=== PATIENT | female | born 2000 | race Caucasian/White ===

== ENCOUNTER 2021-04-27 12:22 | Emergency (ER) | payer OTHER, SELFPAY ==
[2021-04-27 12:34] VITALS: BP 124/65; PULSE 79; RESP 16; TEMP 36.9; O2SAT 100
--- NOTE | 2021-04-27 12:43 | ED.URI ---
HPI - URI/Sore Throat General Chief Complaint: Upper Respiratory Infection Stated Complaint: sore throat/fever/body aches Time Seen by Provider: 04/27/21 12:45 Source: patient and RN notes reviewed Mode of arrival: ambulatory Limitations: no limitations History of Present Illness HPI Narrative: 21-year-old female who presents to [facility] with complaints of sore throat,has felt feverish, body aches, with fullness feelings to bilateral ears since early Tuesday morning. Patient states that she has felt feverish but has not taken her temperature, has been taking Tylenol and Ibuprofen for her symptoms. Patient states that she has had history of previous strep throat infections in past usually once to twice yearly, has had COVID immunizations. 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 MD elicited complaint: fever, sore throat and other (chills and body aches) Onset (ago): day(s) (3) Related Data Allergies Allergy/AdvReac Type Severity Reaction Status Date / Time No Known Allergies Allergy Verified 04/27/21 12:37 Review of Systems Review of Systems: CONSTITUTIONAL: has felt feverish, chills, or sweats. EYES: Denies visual changes, redness, or discharge. ENT: Denies rhinorrhea, congestion,positive for sore throat, positive for fullness feelings of bilateral ears. CARDIOVASCULAR: Denies chest pain, palpitations, or edema. RESPIRATORY: Denies cough or dyspnea. GASTROINTESTINAL: Denies abdominal pain, states some nausea, no vomiting, or diarrhea. GENITOURINARY: Denies dysuria or hematuria. SKIN: Denies rash or itching. MUSCULOSKELETAL: Denies back pain, joint pain, generalized body aches stated. NEUROLOGIC: Denies headache, numbness, or weakness. PSYCHIATRIC: Denies anxiety or depression. All systems reviewed & are unremarkable except as noted in HPI and below PMFSH Past Medical History Medical History (Updated 04/27/21 @ 13:17 by Calli Sinclair NP) Strep pharyngitis Surgical History Surgical History (Updated 04/27/21 @ 13:05 by Calli Sinclair NP) No history of previous surgery Family History Family History (Updated 04/27/21 @ 13:06 by Calli Sinclair NP) Grandparent Diabetes mellitus Mother Hypothyroidism Social History Social History (Updated 04/27/21 @ 13:06 by Calli Sinclair NP) Smoking status: Never smoker Alcohol intake: never Substance use: never Living arrangements: with roommate(s) Occupation/Education: student Gender identity (if verbalized by the patient): Female Comments At time of signature, agree with nursing past medical, surgical, social and family history. There is no relevant family history pertinent to the presenting complaint Exam Narrative: GENERAL: Ill-appearing, well-nourished, and in no acute distress. HEAD: Normocephalic, atraumatic. EYES: PERRLA and EOMI. ENT: Nares clear, no rhinorrhea or epistaxis. Mucous membranes moist.TM's normal with dull light reflex, throat red with exudates on right tonsil with redness and swelling of tonsils with painful swallowing. NECK: Supple.bilateral lymphadenopathy CHEST: Clear to auscultation. No respiratory distress.SAO2 100% on room air. no cough or any tachypnea, denies any dyspnea. HEART: Regular rate and rhythm. No murmur heard. Normal peripheral pulses. ABDOMEN: Soft, nontender, nondistended, normal active bowel sounds. EXTREMITIES: Normal range of motion. No edema. SKIN: Warm, dry, no rash. NEURO: No focal deficits. Alert and oriented x3. Course Vital Signs Vital signs: Vital Signs Temperature 36.9 C 04/27/21 12:34 Pulse Rate 79 04/27/21 12:34 Respiratory Rate 16 04/27/21 12:34 Blood Pressure 124/65 04/27/21 12:34 Pulse Oximetry 100 04/27/21 12:34 Temperature 36.9 C 04/27/21 12:34 Pulse Rate 79 04/27/21 12:34 Respiratory Rate 16 04/27/21 12:34 Blood Pressure 124/65 04/27/21 12:34 Pulse Oximetry 100 04/27/21 12:34 MDM - URI/Sore Throat Di
== END 2021-04-27 13:24 | disposition home or self-care (01) ==
PROVIDERS: Emergency Provider Registered Nurse
DX: J03.90 Acute tonsillitis, unspecified (principal); Z20.822 Contact with and (suspected) exposure to COVID-19
CPT/HCPCS: 87081; 87426; 87880; 99213; C9803; G0463